=== PATIENT | female | born 1945 | race Caucasian/White ===

== ENCOUNTER 2020-11-01 16:43 | Inpatient (IN) | payer MEDICARE, BC ==
--- NOTE | ~2020-11-01 | DS ---
PATIENT:JENIFER COLLADO :47 MEDICAL RECORD: [id number] DISCHARGE SUMMARY ADMISSION DATE: 11/01/20 DISCHARGE DATE: 11/08/20 IDENTIFYING DATA: The patient is 75 years old and she was admitted to the hospital on a voluntary basis. CHIEF COMPLAINT: Depression. HISTORY OF PRESENT ILLNESS: The patient was referred to us because of some statements that were interpreted as her wanting to kill herself. She denies that these are true and feels that the statements were blown out of proportion. She does, however, endorse numerous neurovegetative symptoms along with a great deal of anxiety. Much of this is related to the of her in June. Apparently, she had been asked not to [facility] to [facility], but she did and then she came home and had COVID and gave it to him and he . Obviously, it is a very tragic situation and there is a lot of guilt and regret about it. Even prior to this; however, she was having trouble with anxiety and depression and her explanation of the circumstances that brought her here are inadequate and that she clearly conveyed possible intent to harm herself to the professionals that were seeing her despite which she is now backing away from. HOSPITAL COURSE: The patient was admitted to the hospital and fully evaluated from both a medical, psychological, and social standpoint. she did have evidence of cognitive decline that was present on testing a year ago; however, discussion with her son who is an experienced manager social responsibility indicates that he was not really trusting in these results because of her depression and lack of motivation. The patient was fully oriented, she responded very well to a low dose of an anxiolytic and was tolerating an antidepressant well. After several days of observation and interaction, it was satisfactorily determined that she was not in acute danger. She very much wanted to be discharged and was discharged. DISCHARGE DIAGNOSES: AXIS I: 1. Major depression, severe, recurrent without psychotic features. 2. Generalized anxiety disorder. AXIS II: None. AXIS III: Hypertension, cardiac arrhythmia, hypothyroidism. AXIS IV: Moderate stressors. AXIS V: Global assessment of functioning is 55. PLAN: At the time of discharge, the patient was in good behavioral control and had no evidence of acute dangerousness to herself or others. She was tolerating her medications well. Her long-term prognosis is guarded and will be contingent upon following through with outpatient treatment recommendations, which include both counseling and outpatient psychiatric care. TRANSINT:[id number] Voice Confirmation ID: [id number] DOCUMENT ID: [id number] DISCHARGE SUMMARY REPORT [id number] JENIFER COLLADO PETER MD CC: [id number] DICTATION DATE: 11/09/20 1553 MANAGER FIRE: 11/10/20 0112 DIS IN 11/08/20 [place] [id number] [place] [id number]
[2020-11-01] MEDS ORDERED: LISINOPRIL10 MG PO (16:55)
[2020-11-01] MEDS ORDERED: LEVOTHYROXINE88 MC1 PO (16:55)
[2020-11-01] MEDS ORDERED: BETAPACE 80 MG80 MG PO (16:55)
[2020-11-01] MEDS ORDERED: CITRACAL + D E1 EACH PO (16:56)
[2020-11-01] MEDS ORDERED: ROCALTROL0.5 MCG PO (16:56)
[2020-11-01] MEDS ORDERED: ELIQUIS5 MG PO (16:56)
[2020-11-01 17:13] LABS: BASOPHILS 0.5 % (0-2); EOSINOPHILS 1.7 % (0-7); HEMATOCRIT 36.6 % (36.0-48.0); HEMOGLOBIN 11.9 g/dL (12-16); IMMATURE GRANULOCYTES 0.3 % (0-5); LYMPHOCYTE ABS# 1.95 10x3/uL (1.18-3.74); LYMPHOCYTES 15.3 % (15-50); MCH 30.5 pg (26.0-34.0); MCHC 32.5 g/dL (31.0-37.0); MCV 93.8 fL (80.0-100.0); MEAN PLATELET VOLUME 10.9 fL (7.4-10.4); MONOCYTES 10.2 % (2-11); NEUTROPHIL ABS# 9.15 10x3/uL (1.56-6.13); PLATELET COUNT 241 10x3/uL (130-400); RDW 13.3 % (11.5-14.5); WBC 12.7 10x3/uL (4.8-10.8)
[2020-11-01 17:27] LABS: ANION GAP 11.5 mmol/L (8-16); CALCIUM 9.5 mg/dL (8.5-10.1); CARBON DIOXIDE 31.9 mmol/L (21.0-32.0); CREATININE - SERUM 1.6 mg/dL (0.6-1.3); POTASSIUM - SERUM 3.4 mmol/L (3.5-5.1)
[2020-11-01 17:35] LABS: ALBUMIN 3.6 g/dL (3.4-5.0); BILIRUBIN - TOTAL 0.3 mg/dL (0.2-1.3); MAGNESIUM - SERUM 1.8 mg/dL (1.8-2.4); PROTEIN - SERUM 7.3 g/dL (6.4-8.2)
[2020-11-01 18:01] LABS: APTT 41.3 SECONDS (22.8-39.4); INR 1.19 (0.85-1.17)
[2020-11-01 18:18] LABS: BILIRUBIN NEGATIVE (NEGATIVE); KETONE NEGATIVE (NEGATIVE); NITRITE NEGATIVE (NEGATIVE); UROBILINOGEN NORMAL mg/dL (< 2)
[2020-11-01 18:22] LABS: UDS - AMPHET NEGATIVE QUAL (NEGATIVE); UDS - BARB NEGATIVE QUAL (NEGATIVE); UDS - BENZO NEGATIVE QUAL (NEGATIVE); UDS - COCAINE NEGATIVE QUAL (NEGATIVE); UDS - OPIATE NEGATIVE QUAL (NEGATIVE); UDS - PCP NEGATIVE QUAL (NEGATIVE); UDS - THC NEGATIVE QUAL (NEGATIVE)
[2020-11-01 18:32] LABS: CHOL - HDL RATIO 3.9 ratio (2.3-4.1); LDL-HDL RATIO 2.3 ratio (1.5-3.5); MAGNESIUM - SERUM 1.8 mg/dL (1.8-2.4); THYROID STIMULATING HORMONE 6.85 uIU/mL (0.36-3.74)
[2020-11-01 20:00] VITALS: BP 167/79
--- NOTE | 2020-11-01 21:15 | NUR ---
NEW ADMIT TO DR BOURGEOIS RELATED TO DEPRESSION AND THOUGHTS OF SELF HARM. RECIEVD FROM [facility] ED VIA WHEELCHAIR WITH ED STAFF AND STEP SON AT HER SIDE. CALM AND COOPERATIVE UPON ADMIT. CODE STATUS OF FULL CODE RECEIVED. CODE NUMBER OF 0447 GIVEN TO STEP SON "MARYCRUZ". ADMIT CONSENT RECEIVED. PATIENT IS ALERT AND ORIENTED AND STATES SHE HAS BEEN DEPRESSED. ORIENTED TO CUSTODIAL ROUTINE. RESTING IN BED WITH EYES CLOSED AT THIS TIME.
[2020-11-01 21:44] VITALS: BP 167/79; BMI 23.9
[2020-11-02 08:32] VITALS: BP 128/70
[2020-11-02 16:59] VITALS: Wt 69.2 kg
--- NOTE | 2020-11-02 17:36 | NUR ---
RECEIVED INBED THIS AM.COVID TEST NEGATIVE,AMBULATED TO DAYROOM WITH STAFF AND PEERS.IS ORIENTED X 3.DENIES SUICIDAL THOUGHTS.IS COMPLIANT WITH STAFF AND PEERS.WILL CONTINUE WITH CURRENT PLAN OF CARE,MONITOR FOR CHANGES AND SAFETY.
--- NOTE | 2020-11-02 17:40 | NUR ---
RECEIVED IN PATIENT ROOM. RESTING IN BED WITH EYES CLOSED. CALM AND COOPERATIVE WITH CARE AND ASSESSMENT. STATES SHE IS DEPRESSED AND HAS SUICIDAL THOUGHTS BUT DOES NOT HAVE A PLAN. VERBALLY CONTRACTS FOR SAFETY. REDIRECT AND REORIENT NEEDED. EATING DINNER AT THIS TIME. CONTINUE PLAN OF CARE.
[2020-11-02 20:00] VITALS: BP 143/75
--- NOTE | 2020-11-02 21:46 | NUR ---
PT IS ALERT AND ORIENTED X4. RECEIVED IN HER BED RESTING CALMLY. COMPLIANT WITH ALL MEDICATIONS. DENIES SI. EXPRESSES APPRECIATION FOR STAFF. COOPERATIVE WITH STAFF. EASY TO REDIRECT. MONITOR FOR SAFETY.
--- NOTE | 2020-11-03 07:49 | NUR ---
NURSE SPOKE WITH MARYCRUZ THIS A.M. PASSCODE GIVEN. HE INQUIRED HOW SHE WAS DOING AND IF SHE STARTED HER XANAX BACK YESTERDAY OR NOT. NURSE STATED SHE RESTED WELL 8.25 HOURS. STAFF REPORTED SHE WAS CALM, COOPERATIVE AND DENIES SI AT THIS TIME. NURSE REPORTED PT DID START XANAX 0.25 MG AT NIGHTTIME. HE STATED OKAY THANK YOU. NURSE THANKED HIM AND WISHED HIM A GOOD DAY.
[2020-11-03 09:42] VITALS: BP 142/74
--- NOTE | 2020-11-03 13:09 | PSY ---
PATIENT NAME:JENIFER COLLADO MEDICAL RECORD: [id number] : 47 LOCATION:[facility] ADMISSION DATE: 11/01/20 ACCOUNT: [id number] PSYCHIATRIC EVALUATION DATE OF EVALUATION: 11/02/20 IDENTIFYING DATA: The patient is 75 years old and she is admitted to the hospital on a voluntary basis. CHIEF COMPLAINT: Depression. HISTORY OF PRESENT ILLNESS: The patient is referred to us because of some statements that were interpreted as her wanting to hurt herself. She denies these. She says that she is not wanting to hurt herself and she regrets the misunderstanding. She does say that she really does not care what happens to her, but because of her pentecostal kaylee, she would not want to hurt herself. She is very polite, very cooperative, very pleasant. She has a history of anxiety that is lifelong but it has worsened in recent years and it is particularly worsened with the very unfortunate of her of 37 years. Apparently, they were both quarantined. He did have some chronic health problems and the patient is a very pentecostal woman as was her and she wanted to go to [facility]. She was advised not to do that because of the risk of bringing home Covid, but she went anyway. Unfortunately, she did contract Covid and gave it to her and he . She has a lot of guilt about this as one would obviously expect. She had not been before. This was his second marriage, but they had been for again over 30 years. 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 The neurologist was trying to evaluate these, but she could not tolerate having the EEG done. She felt claustrophobic, said she could not breathe and could not go through with it. Unfortunately, the neurologist being conservative in his approach as he should be advised her not to drive, which has just led to her being more isolated, dependent on others, and unable to tolerate some of the stress that she is having. PAST MEDICAL HISTORY: Significant for hypothyroidism. She also has a history of osteoarthritis and a cardiac arrhythmia and hypertension. She denies any other medical problems. PAST PSYCHIATRIC HISTORY: Significant for the lifelong problem with anxiety that has worsened under the circumstances mentioned above. She has no history of trying to hurt herself. She has had some outpatient psychiatric care but that did not go well either. She was going to the [facility] where they required her to have telemedicine appointments, which were stressful to her. She has no history of drug or alcohol abuse. FAMILY HISTORY: Pending. ALLERGIES: Multiple medications, most of which I think are inaccurate and just represent her anxiety and inability to tolerate the medicines, but I do not think any of them are true drug allergies. MEDICATIONS: Calcium, Synthroid, Betapace, Zestril, and Eliquis. SOCIAL HISTORY: The patient has a high school education. 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 She was once and her had been twice. Her had 2 children from his first marriage. She and he had no children together. She is very active in her [employer] and she denies any history of trauma, emotional, or otherwise. She has no history of drug or alcohol abuse. No history of legal entanglements and functioned well in her community and [employer]. MENTAL STATUS EXAMINATION: The patient is awake, alert and oriented to person, place, time and situation. Her mood is depressed. Her affect is constricted. Thought processes are circumstantial. Memory, concentration, and abstraction abilities are mildly impaired. She denies that she would seek to harm herself or others as well as psychotic symptoms. IMPRESSION: AXIS I: Major depression, severe, recurrent without psychotic features. Generalized anxiety disorder. AXIS II: None. AXIS III: Hypertension, cardiac arrhythmia, hypothyroidism. AXIS IV: Moderate. AXIS V: Global assessment of functioning is 50. PLAN: At this time, the patient is admitted to the hospital secondary to symptoms of anxiety and depression and some possible thoughts of wanting to hurt herself. I do not believe the staff that sent her here misunderstood. I also do not believe she is lying to me; I think that she did not realize the degree of distress she was communicating. The patient has had numerous attempts to treat her for anxiety and depression, but is noncompliant with these treatments. I do not believe she has a seizure disorder. 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 This patient did have a neuropsychological testing by Dr. Rae Florence in January of 2020. Her scores in the cognitive areas were moderately impaired with verbal memory and mildly impaired with attention, spatial domain, and executive functioning. She also had a score of only 21/30 on the [place] Cognitive Assessment score. These findings could certainly be consistent with anxiety and depression, but they are also consistent with an early dementia. At this point, I am not going to treat her with a memory enhancing medication, but I am going to treat her with Zoloft and a low dose of Xanax and will strongly encourage her to give these medications an opportunity to become effective. I think her prognosis is fair if she will follow my instructions. She tells me that her stepson, Lito is the person closest to her, that she trusts him implicitly and would follow his advice. She feels overwhelmed by the home she is living in and the responsibilities that she has and would like to seek an outlet for greater social interaction as well as a reduction in the number of responsibilities that she has. TRANSINT:[id number] Voice Confirmation ID: [id number] DOCUMENT ID: [id number] REFUGIO BOURGEOIS MD at 1309 CC: [id number] DICTATION DATE: 11/02/201825 SALESPERSON FURS: 11/02/202208 [facility] IN [place] [id number] [place] [address]
[2020-11-03 13:12] LABS: RAPID PLASMA REAGIN Reactive (Non Reactive); TREPONEMA PALLIDUM AB Non Reactive (Non Reactive)
--- NOTE | 2020-11-03 14:36 | NUR ---
nurse spoke with Dulce Maria at this time. passcode given. he wanted to know how she was doing. Nurse gave an update at this time. she was doing well anxiety noted, she requested a shower. calm and cooperative with staff. Dulce Maria stated he had spoken with Dr. Frias for some time yesterday about how she was doing, increasing her xanax dosage and when that would happen. maybe she would be better if its twice a day. well did he increase the dosage on the medication?" nurse stated the dosage would be adjusted slowly due to age. dulce maria stated he understood that he knew dr. frias for years and knows how he works." nurse stated the only medications adjustments so far today is Synthroid 100 mcg, vitamin 1,000 mg so far by the medical doctors. Dr. Frias is rounding and will make medication adjustments fot pt." he stated well I'm thinking that she would function better if her Xanax is twice a day maybe the same dose. we want to keep her as independent as long as possible. she said she would take her medications as Dr. Frias would prescribe them to her. she is compliant now but a couple of years ago we had this same problem she would not take them when she gets home." nurse stated we continue to encourage her to take her medications and continue to educate her on the importance of taking her medications as prescribed. we will continue to work with her to get that taken care of as well." he thanked nurse and inquired about visitation time and if her covid results were back at this time. nurse stated the results were still pending and unfortunately we do not allow visitors during PUI time. he verbalizied understanding and thanked nurse.
--- NOTE | 2020-11-03 15:50 | NUR ---
Patient and staff were in the patient day room when the staff observed this patient going over to another patient that sitting beside her..This patient went over to the other patient, took her blanket off, stated to her "You have to go to the bathroom?", then attempted to assist her to stand by lifting her up under her arm. Staff then intervened and redirected this patient and explained safty with transfers and allowing staff to care for the patients. She said she understands.
--- NOTE | 2020-11-03 18:18 | NUR ---
Patient was rec'd this am up in a chair in [facility]. She is A/O times 2 to person and situation. She is med compliant and took meds whole without difficulty. She has been calm and cooperative.She denies any suicidal ideations or self harm. She rec'd new MD orders today. She sat and conversed with other patients today and like visiting with the other female patients. She attended group therapy/activities and participated well.
--- NOTE | 2020-11-03 19:00 | NUR ---
Patient has rec'd multi phone calls from family/friends and on one of the conversations with a family member she is telling the caller about a patient here and what's going on with that person. I discussed with her privacy and confidentiality and she said "oh no". She states she will not do that again.
[2020-11-03 20:00] VITALS: BP 112/58
--- NOTE | 2020-11-03 21:49 | NUR ---
PT IS ALERT AND ORIENTED TO SELF, PLACE AND SITUATION. RECEIVED IN DAYROOM SOCIALIZING WITH PEERS. CALM AND COOPERATIVE WITH STAFF. DENIES SI. RELATES THAT SHE GOT IN TROUBLE WITH ANOTHER NURSE FOR HELPING A PEER TRANSFER IN A WHEELCHAIR. EDUCATED PT ON UNIT POLICIES. PT VERBALIZED UNDERSTANDING. COMPLIANT WITH ALL MEDICATIONS. EASY TO REDIRECT. AMBULATES ON HER OWN WITHOUT ASSIST. MONITOR FOR SAFETY.
--- NOTE | 2020-11-04 05:52 | NUR ---
PT STATES "I WOKE UP THIS MORNING AND WAS VERY CONFUSED ABOUT WHERE I WAS AND HAD TO PIECE MY MEMORIES TOGETHER TO REMEMBER WHERE I AM." RELATES THAT SHE DOESNT TOLERATE DRUGS VERY WELL AND SHE IS CONCERNED ABOUT THIS. PT IS ALERT AND ORIENTED TO SELF, PLACE AND SITUATION AT THIS TIME.
--- NOTE | 2020-11-04 07:10 | NUR ---
LAB CALLED PT COVID NEGATIVE.
[2020-11-04 09:34] VITALS: BP 140/75
--- NOTE | 2020-11-04 12:11 | NUR ---
NURSE SPOKE WITH PATIENT ABOUT HER rpR RESULTS. WERE REACTIVE AT THIS TIME. NURSE AND FOLDED TOWEL MACHINE OPERATOR SPOKE WITH PT AT THIS TIME. NURSE WENT OVER RESULTS AND ANTIBODY TESTS WELL. TREPONEMA PALLIDUM FTA-ABS WHICH WAS NEGATIVE AT THIS TIME. PT WAS NOT REACTIVE TO ANTIBODY TEST AT THIS TIME. PT WAS ANXIOUS ABOUT RESULTS WELL BUT WAS RELIEVED THAT RESULTS WAS NEGATIVE.
[2020-11-04 12:52] LABS: ERYTHROCYTE SEDIMENTATION RATE 20 mm/hr (0-30)
--- NOTE | 2020-11-04 15:34 | NUR ---
NURSE SPOKE WITH MARYCRUZ AT THIS TIME. PASSCODE GIVEN. HE INQUIRED HOW SHE WAS DOING TODAY AND WAS HER XANAX INCREASED, IF HER ZOLOFT INCREASED AND HOW WELL SHE SLEPT. NURSE CHECKED E-MAR STATING HER XANAX WAS INCREASED TO 0.25 MG BID FROM ONCE A DAY TO TWICE A DAY, SYNTHROID WAS INCREASED TO 100 MCG Q DAY AND ZOLOFT WAS STARTED 25 MG DAILY. SHE SLEPT 7.25 HOURS. IT WAS REPORTED BY PREVIOUS SHIFT PT REPORTED THAT WHEN SHE AWOKE IN THE AM SHE FELT DISORIENTED AND DID NOT KNOW WHERE SHE WAS. NURSE STATED STAFF WAS MONITORING THE SITUATION. DR. HUFF DID ORDER A ONE TIME DOSE ABOUT 1550 ON 11/04/20 AND PT DID RECIEVE MEDICATIONS AND HS DOSE WELL. STAFF WILL CONT TO MONITOR. PT HAS NOT HAD ANYMORE FEELINGS LIKE SHE EXPERIENCED THIS AM. HE STATED "WELL THE ZOLOFT WAS THE ORIGINAL DOSE SHE WAS ON BEFORE I WAS WONDERING IF DR. BOURGEOIS WAS GOING TO UP THE DOSAGE. I KNOW HE IS CONSERATIVE WITH INCREASING MEDICATION DOSES. SO SHE SLEPT WELL THATS GOOD FOR HER." NURSE STATED CASTING ROOM OPERATOR AND NURSE SPOKE WITH PT AT THIS TIME SHE DID STATE SHE WAS NOT OVER HER HUSBANDS . HE WAS DIAGNOSED WITH STAGE 5 KIDNEY FAILURE AND HE GOT COVID AND WENT INTO [facility] WE WERENT PREPARED FOR IT. IM STILL DEALING WITH THAT." HE STATED YES, SO IM NOT SURE IF YOU ARE AWARE OF THE STORY BEHIND THAT SHE WAS GOING TO [facility]. [place] DIDNT LEAVE THE HOUSE AT ALL. SHE WAS GOING TO [facility] AND THEY TOLD THEM THEY DIDNT NEED TO WEAR MASKS, SO SHE CAUGHT COVID AND TOOK IT HOME TO [facility]. HE ENDED UP GOING INTO THE HOSPITAL AND SHE COULDNT BE THERE CAUSE OF COVID. SHE DIDNT UNDERSTAND HOW HARD HE WAS HAVING TROUBLE BREATHING. SO HE WENT IN AND SHE COULDNT SEE HIM AND HE DIDNT LEAVE THE HOSPITAL." NURSE STATED HER COVID RESULTS WERE NEGATIVE. HE STATED HE WAS COMING TO VISIT TODAY. NURSE STATED VISITATION HOURS WERE Saturday, SATURDAY AND SATURDAY. HE STATED HE WOULD BE VISITING ON SATURDAY. NURSE STATED UNDERSTANDING AND HE WOULD CALL LATER TO LET HER KNOW HE WAS COMING.
--- NOTE | 2020-11-04 18:10 | NUR ---
pt sitting and talking with peers at this time. pt is alert to person, place and situation. pt compliant with meds, vitals and assessments. pt is withdrawn from staff. pt is calm and cooperative with staff. compliant with dr. frias med regieme. ambulates. can make needs known. will cont plan of care.
[2020-11-04 20:00] VITALS: BP 115/52
--- NOTE | 2020-11-04 22:18 | NUR ---
RECEIVED PATIENT IN DAYROOM SITTING NEXT TO OTHER PATIENTS HAVING A CONVERSATION. WHEN IT WAS TIME FOR HER MEDS SHE HAD A CONCERN REGARDING THE XANAX. EXPLAINED TO HER THAT IT WAS FOR ANXIETY AND TO HELP HER CALM DOWN AND HER RESPONSE WAS, "OKAY, I'LL TRY IT". COMPLIANT WITH MEDS. WILL FOLLOW POC
[2020-11-05 08:00] VITALS: BP 111/68
--- NOTE | 2020-11-05 15:57 | NUR ---
DR. JOEL CAME FOR A VISIT THIS SHIFT.
--- NOTE | 2020-11-05 17:50 | NUR ---
pt everett spoke with this nurse about her progress and medication list. he stated he saw some progress since she been here and I think she is doing much better. So I'm hoping she can go home next week. nurse stated she was doing better and hopefully she can go home.
--- NOTE | 2020-11-05 18:17 | NUR ---
pt sitting in chair at this time. pt is calm and cooperative with staff. compliant with meds, vitals and assessments. pt is oriented to person, place and time. pt does have limited insight to situation. cont to encourage medication intake and follow medications as prescribed by physician. pt expresses concern that her current medication regimen makes her sleepy. pt is not noted to have day time drowsiness. pt states she does sleep better at night and she has no choice but to continue the medication. staff cont to encourage pt to take her medications. will cont plan of care.
[2020-11-05 20:00] VITALS: BP 119/62
--- NOTE | 2020-11-05 22:52 | NUR ---
RECEIVED PATIENT IN DAYROOM SITTING WITH OTHER PEERS, SHE IS COMPLIANT WITH MEDS AND HER AFFECT IS BETTER THIS EVENING THAN YESTERDAY. WILL FOLLOW POC
[2020-11-06 09:43] VITALS: BP 128/73
--- NOTE | 2020-11-06 17:56 | NUR ---
RECEIVED IN PATIENT ROOM. RESTING IN BED WITH EYES OPEN. CALM AND COOPERATIVE WITH CARE AND ASSESSMENT. QUIET AND WITHDRAWN. DEPRESSED. DENIES SUICIDAL IDEATION TODAY. REDIRECT AND REORIENT NEEDED. EATING DINNER AT THIS TIME. CONTINUE PLAN OF CARE.
[2020-11-06 21:06] VITALS: BP 145/69
--- NOTE | 2020-11-06 21:27 | NUR ---
RECEIVED IN DAYROOM. SITTING CALMLY IN A CHAIR WITH PEERS AT HER SIDE. CALM AND COOPERATIVE WITH CARE AND ASSESSMENT. NO STATEMENTS OF SELF HARM VOICED. ENCOUARGE TO EXPRESS NEEDS. CONTINUES TO SIT CALMLY IN DAYROOM. CONTINUE PLAN OF CARE.
[2020-11-07 08:00] VITALS: BP 138/60
--- NOTE | 2020-11-07 08:00 | NUR ---
Received patient in bed with eyes open. Awake and alert x3. Calm and cooperative with assessment at this time. Patient denies suicidal ideation at this time. No behaviors noted. Prescribed medications provided as ordered. Med compliant. Redirect and reorient as needed. Fall precautions in place for safety. Will cpoc.
--- NOTE | 2020-11-07 11:18 | NUR ---
NUTRITION FOLLOW UP: COMMENTS: Patient has been eating well and experiencing a good appetite. No recent significant weight changes. No new labs since 11/01. DIET: Regular Diet PO INTAKE: 84% avg for last 10 meals; 100% for last 6 snacks WEIGHT: 11/02-148 lbs; 11/06- 150 lbs SKIN: No PU or Chronic Wounds BM: x 1 on 11/04 per MD SIG MEDS: Synthroid, Vit B12, OSCAL D SIG LABS: No new labs since 11/01 RECOMMENDATIONS: -Continue Regular Diet -Offer nutritional supplements if PO intake becomes <50% avg for meals RD to follow up within 7 days
--- NOTE | 2020-11-07 13:46 | PN ---
PATIENT:JENIFER COLLADO MEDICAL RECORD: [id number] LOCATION:[facility] ADMISSION DATE: 11/01/20 PROGRESS NOTE DATE OF SERVICE: 11/03/2020 SUBJECTIVE: The patient's case was discussed with staff. She has no new complaint. OBJECTIVE: The patient tolerated her initial dose of Zoloft well. She denies that she wants to harm herself. She is oriented. ASSESSMENT: Major depression. PLAN: The patient will have her Xanax increased slightly. She will be monitored for clinical changes. TRANSINT:[id number] Voice Confirmation ID: [id number] DOCUMENT ID: [id number] REFUGIO BOURGEOIS MD at 1346 CC: [id number] DICTATION DATE: 11/03/20 1605 CORE RESCUER: 11/03/20 2131 ADM IN [place] [id number] [place] [address]
[2020-11-07] MEDS ORDERED: XANAX0.25 MG PO (17:36)
[2020-11-07] MEDS ORDERED: AKWA TEARS15 ML EACH EYE (17:37)
[2020-11-07] MEDS ORDERED: ZOLOFT50 MG PO (17:37)
[2020-11-07] MEDS ORDERED: VITAMIN B-121000 MCG PO (17:37)
--- NOTE | 2020-11-07 20:40 | NUR ---
RECEIVED IN BEDROOM. RESTING IN BED WITH EYES OPEN. CALM AND COOPERATIVE WITH CARE AND ASSESSMENT. NO STATEMENTS OF SELF HARM VOICED. ENCOURAGE TO EXPRESS NEEDS. RESTING QUIETLY IN BED WITH EYES CLOSED AT THIS TIME. CONTINUE PLAN OF CARE.
[2020-11-07 21:36] VITALS: BP 124/57
[2020-11-08 08:43] VITALS: BP 149/77
--- NOTE | 2020-11-08 15:45 | NUR ---
ALL DISCHARGE PAPERWORK SENT WITH PT. DISCHARGE PAPERWORK REVIEWED AND VERIFIED WITH PT AND PT'S SON SONIDO AT THIS TIME. ALL MEDICATIONS REVIEWED AND FOLLOW UP APPT. PT AND SON SONIDO VOICED UNDERSTANDING AT THIS TIME. NO S/SX OF DISTRESS NOTED.
--- NOTE | 2020-11-08 16:04 | PN ---
PATIENT:JENIFER COLLADO MEDICAL RECORD: [id number] LOCATION:[facility] ADMISSION DATE: 11/01/20 PROGRESS NOTE DATE OF SERVICE: 11/07/2020 SUBJECTIVE: The patient's case was discussed with staff. She has no new complaint. OBJECTIVE: The patient is fully oriented. She is calm, cooperative, and denies thoughts of self-harm. She is eating 100% of her meals and slept 8 hours last night. ASSESSMENT: Major depression. PLAN: The patient will be transitioned out of the hospital tomorrow. Her long-term prognosis is guarded. She is going to have follow up with Dr. Munson on an outpatient basis. TRANSINT:[id number] Voice Confirmation ID: [id number] DOCUMENT ID: [id number] REFUGIO BOURGEOIS MD at 1604 CC: [id number] DICTATION DATE: 11/07/20 173 COP EXAMINER: 11/07/20 2248 ADM IN [place] [id number] [place] [address]
--- NOTE | 2020-11-08 18:31 | NUR ---
WAS RECEIVE THIS AM IN HALLWAY VISITING WITH PEERS.IS ORIENTED X 4.COMPLIANT WITH STAFF AND MEDS.DENIES SUICIDAL THOUGHTS.WAS DISCHARGED AT 1545 WITH SON.HAS ALL PERSONAL ITEMS AND INSTRUCTIONS.
--- NOTE | 2020-11-09 15:30 | PN ---
PATIENT:JENIFER COLLADO MEDICAL RECORD: [id number] LOCATION:[facility] ADMISSION DATE: 11/01/20 PROGRESS NOTE DATE OF SERVICE: 11/08/2020 SUBJECTIVE: The patient's case was discussed with staff. She has no new complaint. OBJECTIVE: The patient is in good behavioral control with poor insight about her situation. She does tolerate her medicines well. ASSESSMENT: Depression. PLAN: The patient has no thoughts of self-harm. She has a good aftercare plan, she wants to be discharged and her son is going to pick her up this afternoon. Followup will be with Dr. Munson and [facility]. TRANSINT:[id number] Voice Confirmation ID: [id number] DOCUMENT ID: [id number] REFUGIO BOURGEOIS MD at 1530 CC: [id number] DICTATION DATE: 11/08/20 1636 BUFFING WHEEL FORMER MACHINE: 11/08/20 2347 DIS IN 11/08/20 [place] [id number] [place] [address]
== END 2020-11-08 15:45 | disposition home or self-care (01) | DRG 885 ==
LOC: D.ER 16:43 → D.PSYCH 19:20
PROVIDERS: Emergency Medicine; Family Medicine; ADMIT Psychiatry & Neurology Psychiatry; ATTEND Psychiatry & Neurology Psychiatry
DX: F33.2 Major depressive disorder, recurrent severe without psychotic features (principal); R45.851 Suicidal ideations; F41.1 Generalized anxiety disorder; I10 Essential (primary) hypertension; E03.9 Hypothyroidism, unspecified; Z20.822 Contact with and (suspected) exposure to COVID-19; G47.00 Insomnia, unspecified; I48.0 Paroxysmal atrial fibrillation; M06.9 Rheumatoid arthritis, unspecified; F43.20 Adjustment disorder, unspecified; H04.129 Dry eye syndrome of unspecified lacrimal gland

== ENCOUNTER → 2020-12-22 08:57 | Outpatient (CLI) | payer MEDICARE, BC ==
[2020-11-02 16:59] VITALS: BMI 23.8
[~2020-12-22 08:57] MED LIST: AKWA TEARS15 ML EACH EYE; BETAPACE 80 MG80 MG PO; CITRACAL + D E1 EACH PO; ELIQUIS5 MG PO; LEVOTHYROXINE88 MC1 PO; LISINOPRIL10 MG PO; ROCALTROL0.5 MCG PO; VITAMIN B-121000 MCG PO; XANAX0.25 MG PO; ZOLOFT50 MG PO
== END | disposition home or self-care (01) ==
LOC: D.US 08:57
PROVIDERS: ATTEND Internal Medicine
DX: R92.8 Other abnormal and inconclusive findings on diagnostic imaging of breast (principal)

== ENCOUNTER 2020-12-29 05:43 | Day surgery (SDC) | payer MEDICARE, BC ==
[~2020-12-29] VITALS: Ht 165.1 cm; Wt 64.4 kg
--- NOTE | ~2020-12-29 | OP ---
PATIENT NAME: JENIFER COLLADO MEDICAL RECORD: [id number] :47 LOCATION:D.OPS ADMISSION DATE: SURGEON: JEREMY BUENO MD DATE OF OPERATION: 12/29/2020 PREOPERATIVE DIAGNOSES: 1. Left breast cancer. 2. Hypertension. 3. Hypercholesterolemia. 4. Anxiety disorder. 5. Atrial fibrillation. POSTOPERATIVE DIAGNOSES: 1. Left breast cancer. 2. Hypertension. 3. Hypercholesterolemia. 4. Anxiety disorder. 5. Atrial fibrillation. PROCEDURE: 1. Left upper outer quadrant lumpectomy. 2. Left axillary sentinel lymph node biopsy. SURGEON: Jeremy Bueno MD DESCRIPTION OF PROCEDURE: Preoperatively, the patient underwent lymphoscintigraphy showing uptake in the left axilla. The patient's left breast and axilla were prepped and draped in sterile fashion. There was a large palpable mass in the lateral aspect of the left breast in the upper outer quadrant. An ovoid incision was made incorporating the skin overlying this mass, which appeared to be tethered down towards the mass. The surrounding subcutaneous fatty tissue was excised using electrocautery and we performed a dissection of the surrounding breast and fatty tissue around the mass taking a good core of what appeared to be normal gross tissue. Once the mass was completely excised, it was marked and sent off for permanent specimen. We irrigated out the wound bed with sterile water and any bleeding was treated with electrocautery. We then approached the patient's left axilla. Using a Neoprobe, we were able to find the area of increased uptake and a transverse incision was made overlying this. Electrocautery was used to dissect through the subcutaneous tissues and fascia until we entered the axillary space. We were able to localize a single lymph node with a reading of 435. This lymph node was excised using electrocautery. We then inspected the remainder of the axillary bed and found no other pertinent axillary lymph node tissue. The wound bed was then irrigated out with sterile water. The subcutaneous tissues were reapproximated with interrupted 3-0 Vicryl and the skin incisions were closed with subcutaneous running 5-0 Monocryl. A total of 10 mL of 0.25% Marcaine with epinephrine was infused in the surrounding tissues and the wounds were dressed appropriately. COMPLICATIONS: None. CONDITION: Stable. ANESTHESIA: General endotracheal and local. OPERATIVE REPORT [id number] JENIFER COLLADO BLOOD LOSS: Minimal. TRANSINT:[id number] Voice Confirmation ID: [id number] DOCUMENT ID: [id number] JEREMY BUENO MD CC: FRANK JAIME MD [id number] DICTATION DATE: 12/29/20 1400 MEDICINAL CHEMIST: 12/29/20 1558 [facility] [place] 12/29/20 [facility] [address] [place] [address]
[2020-12-29 06:28] LABS: EOSINOPHILS 2.2 % (0-7); HEMATOCRIT 35.3 % (36.0-48.0); HEMOGLOBIN 12.1 g/dL (12-16); LYMPHOCYTES 13.3 % (15-50); MCH 30.8 pg (26.0-34.0); MCHC 34.2 g/dL (31.0-37.0); MCV 90.1 fL (80.0-100.0); MEAN PLATELET VOLUME 9.1 fL (7.4-10.4); MONOCYTES 8.5 % (2-11); PLATELET COUNT 257 10x3/uL (130-400); RBC 3.92 10x6/uL (4.00-5.40); RDW 13.6 % (11.5-14.5); WBC 10.1 10x3/uL (4.8-10.8)
[2020-12-29 06:34] LABS: INR 1.11 (0.85-1.17); PROTIME 13.2 SECONDS (11.6-15.0)
[2020-12-29 06:35] LABS: APTT 38.5 SECONDS (22.8-39.4)
[2020-12-29 07:03] VITALS: BP 151/71; Ht 165.1 cm; Wt 64.4 kg
[2020-12-29 07:22] LABS: ANION GAP 12.6 mmol/L (8-16); CARBON DIOXIDE 31.9 mmol/L (21.0-32.0); CREATININE - SERUM 2.7 mg/dL (0.6-1.3); POTASSIUM - SERUM 3.5 mmol/L (3.5-5.1)
[2020-12-29 07:24] LABS: CALCIUM 13.1 mg/dL (8.5-10.1)
--- NOTE | 2020-12-29 09:47 | NUR ---
PT RETURNED FROM SPECIALS, PER TANNERY WORKER, PT RECEIVED NO SEDATION. SR UP X2 WITH CALL LIGHT IN REACH. VS TAKEN. PT REMAINS NPO FOR SURGICAL PROCEDURE AND PT IS AWARE AND VOICED UNDERSTANDING. FAMILY AT BEDSIDE.
[2020-12-29] MEDS ORDERED: HYDROCODON-ACE1 EA10 PO (14:04)
--- NOTE | 2020-12-29 15:36 | NUR ---
DC TEACHING COMPLETE TO PT, SON, AND PT'S SISTER PIV REMOVED, CATHETER INTACT, SISTER HELPING PT TO GET DRESSED.
--- NOTE | 2020-12-29 16:10 | NUR ---
PT DC'D VIA WC ACCOMPANIED BY THIS NURSE TO POV WITH SON DRIVING. SON, PTS SISTER AND PT HAVE ALL PERSONAL BELONGINGS AND DC PACKET.
== END 2020-12-29 16:10 | disposition home or self-care (01) ==
LOC: D.NM 05:43 → D.OPS 05:43 → D.NM 08:00 → D.OPS 16:10
PROVIDERS: Anesthesiology; ATTEND Surgery
DX: C50.912 Malignant neoplasm of unspecified site of left female breast (principal); I10 Essential (primary) hypertension; E78.00 Pure hypercholesterolemia, unspecified; F41.9 Anxiety disorder, unspecified; I48.91 Unspecified atrial fibrillation